=== PATIENT | female | born 1945 | race Caucasian/White ===

== ENCOUNTER → 2017-06-11 | Outpatient (CLI) | payer MEDICARE, BC ==
--- NOTE | 2017-06-11 15:35 | XR ---
EXAMINATION TYPE: XR chest 2V DATE OF EXAM: 06/11/2017 COMPARISON: NONE HISTORY: Shortness of breath TECHNIQUE: Frontal and lateral views of the chest are obtained. FINDINGS: Scattered senescent parenchymal changes noted. Calcified granuloma seen diffusely throughout both bruno gs. Focal eventration left hemidiaphragm. No evidence for infiltrate. No evidence for atelectasis. Heart size is stable. Mediastinal structures are stable and grossly unremarkable. No evidence for hilar prominence. Degenerative changes dorsal spine. IMPRESSION: 1. No evidence for acute pulmonary disease.
== END | disposition home or self-care (01) ==
LOC: RADXRMAIN 14:50
PROVIDERS: ATTEND Anesthesiology
DX: Z01.818 Encounter for other preprocedural examination (principal); Z88.1 Allergy status to other antibiotic agents
CPT/HCPCS: 71046; 93005

== ENCOUNTER → 2018-11-28 | Day surgery (SDC) | payer MEDICARE, BC ==
[2018-11-24 17:30] VITALS: BMI 26.6
[~2018-11-28] MED LIST: LIDOCAINE 1% 20 ML VIAL (10MG/ML) FOR IV START INTRADERMA ONE; LIDOCAINE 1% 20 ML VIAL (10MG/ML) FOR IV START INTRADERMA PRN; LIDOCAINE 1% INJ 10MG/ML (20 ML MDV) ONE; MIDAZOLAM (PF) 2 MG/2 ML VIAL IV ONE; PROPOFOL 10 MG/ML 20 ML VIAL IV ONE
[2018-11-28 10:16] VITALS: RESP 16; TEMP 97.7
[2018-11-28] MEDS: LACTATED RINGERS 1,000 ML IV SCH ×2 (10:21→10:33)
--- NOTE | 2018-11-28 11:26 | P.GSHP ---
History of Present Illness H&P Date: 11/28/18 Chief Complaint: Epigastric pain This is a 73-year-old female with complaints of epigastric pain. Patient is today for EGD. Past Medical History Past Medical History: Fibromyalgia, Hyperlipidemia, Osteoarthritis (OA), Pneumonia Additional Past Medical History / Comment(s): RESTLESS LEG, STATES HAS HAD "SPOTS(scar tissue) ON LUNGS SINCE AGE 16", "bad headaches", nausea and abdominal pain, "diverticuli in throat" History of Any Multi-Drug Resistant Organisms: None Reported Past Surgical History: Joint Replacement, Orthopedic Surgery, Tonsillectomy Additional Past Surgical History / Comment(s): RT KNEE REPLACEMENT x 2, CHEPE CATARACT SX A CHILD, REDONE WITH IMPLANTED LENSES, rt ankle surgery Past Anesthesia/Blood Transfusion Reactions: Motion Sickness Smoking Status: Never smoker - Past Family History Mother Family Medical History: No Reported History Medications and Allergies Home Medications Medication Instructions Recorded Confirmed Type Cetirizine HCl [Zyrtec] 10 mg PO DIRECTED PRN 05/03/15 11/28/18 History Simvastatin [Zocor] 40 mg PO HS 05/03/15 11/28/18 History rOPINIRole HCL [Requip] 0.5 mg PO TID PRN 05/03/15 11/28/18 History Ascorbic Acid [Vitamin C] 500 mg PO DAILY 11/24/18 11/24/18 History FLUoxetine HCL [PROzac] 20 mg PO HS 11/24/18 11/28/18 History HYDROcodone/APAP 10-325MG [[place] 1 tab PO QID 11/24/18 11/28/18 History 10-325] Multivitamins, Thera [Multivitamin 1 tab PO DAILY 11/24/18 11/24/18 History (formulary)] Omeprazole [PriLOSEC] 20 mg PO AC-BRKFST 11/24/18 11/24/18 History Vitamin C/Biotin [Hair, Skin and 2 tab PO DAILY 11/24/18 11/28/18 History Nails] Allergies Allergy/AdvReac Type Severity Reaction Status Date / Time ciprofloxacin [From Cipro] Allergy stumbling Verified 11/24/18 17:18 into [facility] erythromycin base Allergy stumbling Verified 11/24/18 17:18 [From E-Mycin] into [facility] Surgical - Exam Vital Signs Temp Pulse Resp BP Pulse Ox 97.7 F 91 16 149/77 95 11/28/18 10:09 11/28/18 10:09 11/28/18 10:09 11/28/18 10:09 11/28/18 10:09 - General well developed, well nourished, no distress - Eyes PERRL - ENT normal pinna - Neck no masses - Respiratory normal expansion - Cardiovascular Rhythm: regular - Abdomen Abdomen: soft, non tender Assessment and Plan Assessment: Epigastric pain. We'll perform EGD tonight for gastritis.
--- NOTE | 2018-11-28 11:35 | P.OP ---
Date of Procedure: 11/28/18 Preoperative Diagnosis: Epigastric pain Postoperative Diagnosis: Antral gastritis Procedure(s) Performed: EGD Anesthesia: MAC Surgeon: Morris Holland Pathology: other (Antrum) Condition: stable Disposition: PACU Description of Procedure: The patient's placed on the endoscopy table in the lateral position. She received IV sedation. The gastroscope placed oropharynx and passed in the esophagus and into the stomach. The scope was then placed through the pylorus. The first and second portion of the duodenum appeared normal. The scope was then brought back the antrum this was mildly inflamed. A biopsies performed. The scope was unretroflexed and remainder of the stomach appeared normal. There is no significant hiatal hernia. The GE junction was at 47 is. The distal esophagus appeared normal. The proximal esophagus appeared normal. Scope withdrawn for patient.
[2018-11-28 12:45] VITALS: BP 138/76; PULSE 66
--- NOTE | 2018-11-29 12:05 | NM ---
EXAMINATION TYPE: NM hepatobiliary w CCK DATE OF EXAM: 11/28/2018 COMPARISON: NONE INDICATION: Epigastric pain TECHNIQUE: After the intravenous administration of 5.13 mCi Tc 99m Mebrofenin hepatobiliary scintigra phy is performed. Images were obtained immediately post injection. FINDINGS: There is prompt uptake and excretion of radiotracer by the liver. Extrahepatic ducts are identified at 9 minutes. The gallbladder is visualized within 9 minutes. Small bowel activity is noted within 30 minutes. At one hour CCK was administered, patient was injected with 1.4 mcg of Kinevac, and gallbladder eject ion fraction is calculated at 92 %, which is elevated. (Normal >35% and <80%.). IMPRESSION: 1. Clinical correlation recommended for biliary hyperkinesia.
== END | disposition home or self-care (01) ==
LOC: ORWHC2ENDO 09:59
PROVIDERS: ATTEND Surgery
DX: K29.50 Unspecified chronic gastritis without bleeding (principal); E78.5 Hyperlipidemia, unspecified; G25.81 Restless legs syndrome; M19.90 Unspecified osteoarthritis, unspecified site; M79.7 Fibromyalgia; Z88.1 Allergy status to other antibiotic agents; Z96.651 Presence of right artificial knee joint; Z98.42 Cataract extraction status, left eye; Z98.41 Cataract extraction status, right eye; Z96.1 Presence of intraocular lens; Z79.899 Other long term (current) drug therapy; Z79.891 Long term (current) use of opiate analgesic
CPT/HCPCS: 88305; 78227; 43239; A9537; J2805; J2001; J2704; J2250

== ENCOUNTER 2018-12-13 08:48 | Day surgery (SDC) | payer MEDICARE, BC ==
[2018-12-09 13:00] VITALS: BMI 26.4
[~2018-12-13 08:48] MED LIST changes: +DEXAMETHASONE SOD PHOSPHATE 10 MG/ML 1 ML VIAL IV ONE; +HEPARIN SODIUM,PORCINE 5,000 UNIT/ML 1 ML VIAL SQ ONE; -LIDOCAINE 1% 20 ML VIAL (10MG/ML) FOR IV START INTRADERMA ONE; -LIDOCAINE 1% 20 ML VIAL (10MG/ML) FOR IV START INTRADERMA PRN; -LIDOCAINE 1% INJ 10MG/ML (20 ML MDV) ONE; -MIDAZOLAM (PF) 2 MG/2 ML VIAL IV ONE; +MIDAZOLAM 2 MG/2 ML VIAL IV PRN; +ONDANSETRON 4 MG/2 ML VIAL IVP ONE; -PROPOFOL 10 MG/ML 20 ML VIAL IV ONE
[2018-12-13 09:30] VITALS: TEMP 96.7
[2018-12-13] MEDS: LACTATED RINGERS 1,000 ML IV SCH ×2 (09:45→10:57)
[2018-12-13] MEDS ORDERED: LIDOCAINE 1% 20 ML VIAL (10MG/ML) FOR IV START INTRADERMA ONE (09:45)
[2018-12-13] MEDS ORDERED: SCOPOLAMINE 1.5MG/72HR PATCH TRANSDERM ONE (09:48)
--- NOTE | 2018-12-13 10:33 | P.GSHP ---
History of Present Illness H&P Date: 12/13/18 Chief Complaint: Upper quadrant pain This a 73-year-old female who presents today for laparoscopically second. Patient had complaints of right quadrant pain. Her recent HIDA scan showed abnormal ejection fraction. Past Medical History Past Medical History: Cancer, COPD, Fibromyalgia, Hyperlipidemia, Osteoarthritis (OA), Pneumonia Additional Past Medical History / Comment(s): RESTLESS LEG, STATES HAS HAD "SPOTS(scar tissue) ON LUNGS SINCE AGE 16", "bad headaches", nausea and abdominal pain, polyp in throat", skin cancer History of Any Multi-Drug Resistant Organisms: None Reported Past Surgical History: Joint Replacement, Orthopedic Surgery, Tonsillectomy Additional Past Surgical History / Comment(s): RT KNEE REPLACEMENT x 2, CHEPE CATARACT SX A CHILD, REDONE WITH IMPLANTED LENSES, rt ankle surgery, egd Past Anesthesia/Blood Transfusion Reactions: Motion Sickness Smoking Status: Never smoker - Past Family History Mother Family Medical History: No Reported History Medications and Allergies Home Medications Medication Instructions Recorded Confirmed Type Cetirizine HCl [Zyrtec] 10 mg PO HS PRN 05/03/15 12/13/18 History Simvastatin [Zocor] 40 mg PO HS 05/03/15 12/13/18 History rOPINIRole HCL [Requip] 0.5 mg PO TID PRN 05/03/15 12/13/18 History Ascorbic Acid [Vitamin C] 500 mg PO DAILY 11/24/18 12/13/18 History FLUoxetine HCL [PROzac] 20 mg PO HS 11/24/18 12/13/18 History HYDROcodone/APAP 10-325MG [[place] 1 tab PO QID PRN 11/24/18 12/13/18 History 10-325] Multivitamins, Thera [Multivitamin 1 tab PO DAILY 11/24/18 12/13/18 History (formulary)] Omeprazole [PriLOSEC] 20 mg PO AC-BRKFST 11/24/18 12/13/18 History Vitamin C/Biotin [Hair, Skin and 2 tab PO DAILY 11/24/18 12/13/18 History Nails] Allergies Allergy/AdvReac Type Severity Reaction Status Date / Time ciprofloxacin [From Cipro] Allergy Abdominal Verified 12/13/18 09:31 Pain, DIZZY erythromycin base Allergy stumbling Verified 12/13/18 09:31 [From E-Mycin] into [facility] DIZZY VOMITING Surgical - Exam Vital Signs Temp Pulse Resp BP Pulse Ox 96.7 F L 83 20 116/76 94 L 12/13/18 09:27 12/13/18 09:27 12/13/18 09:27 12/13/18 09:27 12/13/18 09:27 - General well developed, well nourished, no distress - Eyes PERRL - ENT normal pinna - Neck no masses - Respiratory normal expansion - Cardiovascular Rhythm: regular - Abdomen Abdomen: soft, non tender Assessment and Plan Assessment: Right upper quadrant pain Abnormal HIDA scan. We'll perform colonoscopy
[2018-12-13] MEDS ORDERED: MIDAZOLAM 2 MG/2 ML VIAL IVP ONE (10:35)
[2018-12-13] MEDS: MIDAZOLAM 2 MG/2 ML VIAL IVP ONE ×2 (10:35→10:41)
--- NOTE | 2018-12-13 10:48 | P.OP ---
Date of Procedure: 12/13/18 Preoperative Diagnosis: Constipation Postoperative Diagnosis: Normal colon Poor colonic prep Procedure(s) Performed: Colonoscopy Anesthesia: MAC Surgeon: Morris Holland Pathology: none sent Condition: stable Disposition: PACU Description of Procedure: The patient's placed on the endoscopy table in the lateral position. He received IV sedation. Digital rectal performed which revealed no abnormalities. Flexible colonoscope was then placed patient anus passed throughout the entire colon. The ileocecal valve was visualized. There was a large amount of liquid stool in the colon which limited the view of the mucosa. The scope was withdrawn. The ascending colon, transverse colon and descending colon appeared normal. The sigmoid colon was tortuous. Scope was then brought back the rectum and this appeared normal. Scope withdrawn for patient.
[2018-12-13] MEDS ORDERED: PROPOFOL 10 MG/ML 20 ML VIAL IV ONE (10:54)
[2018-12-13] MEDS ORDERED: ROCURONIUM BROMIDE 10 MG/ML 10 ML VIAL IV ONE (10:54)
[2018-12-13] MEDS ORDERED: fentaNYL (PF) 50 MCG/ML 2 ML AMP ONE (10:54)
[2018-12-13] MEDS ORDERED: NEOSTIGMINE 1 MG/ML 10 ML VIAL ONE (10:54)
[2018-12-13] MEDS ORDERED: LIDOCAINE 1% INJ 10MG/ML (20 ML MDV) ONE (10:54)
[2018-12-13] MEDS ORDERED: GLYCOPYRROLATE 0.2 MG/ML 2 ML VIAL ONE (10:54)
[2018-12-13] MEDS ORDERED: BUPIVACAINE (PF) 0.25% 30 ML VIAL SQ ONE (11:12)
[2018-12-13] MEDS: HYDROmorphone 0.5 MG/0.5 ML SYRINGE IVP PRN ×4 (11:50→12:05)
--- NOTE | 2018-12-13 11:52 | P.OP ---
Date of Procedure: 12/13/18 Preoperative Diagnosis: Cholecystitis Postoperative Diagnosis: Cholecystitis Procedure(s) Performed: Laparoscopic cholecystectomy Anesthesia: MAC Surgeon: Morris Holland Estimated Blood Loss (ml): 5 Pathology: other (Gallbladder) Condition: stable Disposition: PACU Description of Procedure: The patient was placed on the operating table. The patient received a general endotracheal tube anesthesia. The patients abdomen was prepped and draped in the usual sterile fashion. Through an infraumbilical stab incision, the fascia of the anterior abdominal wall was grasped with a pair of Kochers and then the Veress needle was placed in the peritoneal cavity. Position of the Veress needle was confirmed with positive drop test. The abdomen was then insufflated. After adequate insufflation, the 10 mm trocar was placed in the peritoneal cavity. Following this the laparoscope was placed in the peritoneal cavity. The patient was placed in the head-up, right side up position and then a 5 mm trocar was placed in the right lateral and right subcostal position under direct visualization. A 8 mm trocar was placed in the epigastric position. The gallbladder was grasped in the fundus and infundibulum. Traction on the gallbladder was placed in the lateral and the cephalad positions. The triangle of Calot was visualized.. The cystic duct was bluntly dissected until the union of the cystic duct and common bile duct was seen. A critical view of safety was achieved. The cystic duct was then divided and sealed with the Harmonic scissors. A PDS Endoloop was then placed throughout the cystic duct stump. The cystic artery divided and sealed with the Harmonic scissors. The gallbladder was then removed from the liver bed using Harmonic scissors. The gallbladder was then extracted through the epigastric port site. Operative field was checked for any bleeding spots and Harmonic scissors was used to coagulate the liver bed. The abdomen was irrigated. The trocars were removed. The skin was closed using interrupted 3-0 Vicryl suture. Dermabond dressing were applied. The patient tolerated the procedure well.
[2018-12-13] MEDS ORDERED: ONDANSETRON 4 MG/2 ML VIAL IVP ONE (11:55)
[2018-12-13] MEDS ORDERED: LACTATED RINGERS 1,000 ML IV ONE (12:00)
[2018-12-13] MEDS ORDERED: diphenhydrAMINE 50 MG/ML 1 ML VIAL IVP ONE (12:19)
[2018-12-13] MEDS ORDERED: HYDROcodone/APAP 10-325MG 1 EACH TAB PO ONE (12:27)
[2018-12-13 14:33] VITALS: BP 142/76; PULSE 99; RESP 18
== END 2018-12-13 14:30 | disposition home or self-care (01) ==
LOC: OR 08:48
PROVIDERS: ATTEND Surgery
DX: K81.1 Chronic cholecystitis (principal); J44.9 Chronic obstructive pulmonary disease, unspecified; E78.5 Hyperlipidemia, unspecified; M79.7 Fibromyalgia; M19.90 Unspecified osteoarthritis, unspecified site; G25.81 Restless legs syndrome; K21.9 Gastro-esophageal reflux disease without esophagitis; Z88.1 Allergy status to other antibiotic agents; Z85.828 Personal history of other malignant neoplasm of skin; Z87.01 Personal history of pneumonia (recurrent); Z79.899 Other long term (current) drug therapy; Z96.651 Presence of right artificial knee joint; Z90.89 Acquired absence of other organs; Z98.41 Cataract extraction status, right eye; Z98.42 Cataract extraction status, left eye; Z96.1 Presence of intraocular lens; Z98.890 Other specified postprocedural states
CPT/HCPCS: 88304; 47562; J2250; J1200; J1644; J1100; J2710; J0690; J2405; J2001; J3010; J2704; J1170

== ENCOUNTER → 2020-01-18 | Outpatient (CLI) | payer MEDICARE, BC ==
--- NOTE | 2020-01-18 22:01 | CT ---
EXAMINATION TYPE: CT abdomen wo/w con DATE OF EXAM: 01/18/2020 COMPARISON: None INDICATION: RUQ pain DLP: 1150 mGycm, Automated exposure control for dose reduction was used. CONTRAST: 100 mL of Isovue 300. Study performed with Oral Contrast TECHNIQUE: Axial images were obtained from above the diaphragm to the pubic rami in the axial plane a t 5 mm thick sections. Reconstructed images are reviewed on the computer in the coronal plane. FINDINGS: Limited CT sections are obtained the lung bases. Scattered calcifications are within the lung bases likely on the basis of granuloma.. There appears to be herniation of the posterior left lung base. S tomach spleen adrenal glands and kidney appear to extend upwards from this location. CT ABDOMEN: Liver: Normal Spleen: Couple of calcified granuloma are within the visualized portion of the spleen. Pancreas: Normal Adrenal glands: The adrenal glands are normal. Gallbladder: Not identified. Kidneys: No masses are evident. No hydronephrosis is present. No cysts are present. Study is witho ut intravenous contrast. No renal stones are identified. Postcontrast imaging is performed. Kidneys r emain unremarkable Aorta: Vascular calcification is within the aorta. Inferior vena cava: Normal. Loops of bowel within the abdomen and upper pelvis are normal. There are loops of bowel which are incompletely distended or lack oral contrast limiting their evaluation. IMPRESSIONS: 1. Calcified granuloma within the lung bases. 2. 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 3. No suspicious acute changes within the abdomen
== END | disposition home or self-care (01) ==
LOC: RADCTMAIN 12:51
PROVIDERS: ATTEND Family Medicine
DX: R10.11 Right upper quadrant pain (principal)
CPT/HCPCS: 82565; 84520; 74170; 36415; Q9967

== ENCOUNTER → 2023-01-18 | Outpatient (CLI) | payer MEDICARE ==
[2023-01-18 14:25] VITALS: BP 135/94; PULSE 111; RESP 16; TEMP 98.4
--- NOTE | 2023-01-18 14:55 | P.PAINPG ---
PQRS Measure Charge Sheet Comment: HISTORY OF PRESENT ILLNESS: A 77 yr old female as a referral from Dr Baron presents today w severe and chronic LBP x 2 yrs secondary to DDD, spondylosis and facet arthropathy without myelopathy for evaluation. Pt states pain level is provoked at 10/10 in intensity, constant, localized in the mid to lower lumbar spine, predominantly axial, achy in character w occasional shooting pain towards the BL hips and LEs. Pain is provoked by weight bearing activity. Pain is alleviated by medications (Bath 10/325mg #120, Flexeril, Ibu), PT in 2020, chiropractic treatments in 2020, physician guided stretches daily x 3 yrs, use of a wheelchair for ambulatory assistance, heat, ice, topicals, repositioning and rest. LESIs have been ineffective in the past. Pt states Dr Cagel told her she is not a surgical candidate. Oswestry axial pain score at 27. PMH: OA, Skin CA, COPD, Fibromyalgia, Hyperlipidemia, RLS PSH: Laparoscopic Cholecystectomy (2019), EGD (2019), R Knee Replacement x2, Tonsillectomy, BL Cataract Extraction w Lens Implants, R Ankle Surgery SH: Negative x3 FH: Mo - No Reported History All: See list Meds: See list REVIEW OF ORGAN SYSTEMS: CONSTITUTIONAL: No fevers or chills. No recent weight loss. NEUROLOGICAL: + numbness and tingling along the distal extremities. No seizure disorders or headaches. MUSCULOSKELETAL: + pain PSYCHIATRIC: Denies current depression or suicidal thoughts. Physical Examinations : Constitutional : Cooperative , not in acute distress . Neurologic : Cranial nerve II to XII intact. No focal neurological deficits. Psychiatric : alert & oriented x 3. Matching mood & appropriate affect. Judgment & insight intact. Musculoskeletal : Cervical Spine Motor strength in the deltoid and biceps: Normal right side. Normal Left side Motor strength biceps and the wrist extensors: Normal right side . Normal left side Motor strength in the triceps muscle: Normal right side. Normal left side Deep tendon reflexes: Normal at the biceps. Normal at Brachioradialis. Normal at triceps Vertebral body tenderness to deep palpation over Cervical facet loading test: positive bilaterally Spurling test: positive bilaterally Neck distraction test: positive bilaterally Lacho sign: positive bilaterally Lumbar spine Motor strength lower extremities ,thigh and legs 5/5 Right side , 5/5 Left side Deep tendon reflexes : Normal Knee Jerk. Normal Ankle Jerk Vertebral body tenderness over Thornton Test positive Taut bands w twitch response over BL L1-S1 Lumbar facet Loading Test: positive Right / positive Left Range of motion of the lumbar spine Flexion 30 degrees, extension 10 degrees Straight Leg Raise test: Left/ Right positive at degree Neftali test: positive right / positive left. Severe tenderness over the Sacroiliac joint on the Right / Left sides Gaenslen test: positive bilaterally Seated flexion test: positive bilaterally. Sacral spine : Severe tenderness over the Sacroiliac joint: right side / left side Range of motion: Flexion of the lumbar spine <60 degrees Range of motion: Extension of the lumbar spine <20 degrees Gaenslen's Test positive Neftali test: positive right side / left side Thigh Thrust Test Sacral Thrust Test Imaging: None on file Assessment/ Plan : Lumbar DDD Recommendation of BL TPIs L1-S1. May need a series of injections for optimal pain relief. Risks, benefits of procedure discussed and patient verbalized understanding. Admits to anti- coagulant use or medical history of diabetes. Protocol for discontinuation/ continuation of medications yuan procedure discussed. Minimal anesthesia provided, if clinically indicated, consisting of Versed and Fentanyl. Medication management. Bath 10/325mg #120 w 1 RF. Use, side effects, adverse reactions and safe storage discussed. Opiate/ narcotic agreement signed 01/18/23. MAPS reviewed. Last fill was Sep [address] Baron's longterm. All questions answered. I have spent greater than 30 minutes on patient care today. Dr Corea was available by phone for the evaluation of this patient. The time was used to review the medical records including relevant urine studies and Prescription history (MAPs), review of the available imaging, evaluation and examination of the patient, coordination of care with the medical staff and if applicable referring physicians, as well as creation of the medical record PQRS Narrative: Smoking Status Never smoker Home Medications: Ambulatory Orders Cetirizine HCl [Zyrtec] 10 mg PO HS PRN 05/03/15 Simvastatin [Zocor] 40 mg PO HS 05/03/15 rOPINIRole HCL [Requip] 0.5 mg PO TID PRN 05/03/15 Ascorbic Acid [Vitamin C] 500 mg PO DAILY 11/24/18 FLUoxetine HCL [PROzac] 20 mg PO HS 11/24/18 HYDROcodone/APAP 10-325MG [[place] 10-325] 1 tab PO QID PRN 11/24/18 Multivitamins, Thera [Multivitamin (formulary)] 1 tab PO DAILY 11/24/18 Omeprazole [PriLOSEC] 20 mg PO AC-BRKFST 11/24/18 Vitamin C/Biotin [Hair, Skin and Nails] 2 tab PO DAILY 11/24/18 Controlled Substance Measures - Controlled Substance Measures Is patient prescribed a controlled substance at discharge?: Yes When asked, does pt state using other controlled substances?: No If prescribed controlled substance>3 days was MAPS reviewed?: Yes If Rx opioid, was Start Talking consent form obtained?: Yes Was information provided regarding opioid addiction?: Yes
== END ==
LOC: PNWHC3 13:20
PROVIDERS: ATTEND Specialist
DX: M15.0 Primary generalized (osteo)arthritis (principal); E78.5 Hyperlipidemia, unspecified; M70.62 Trochanteric bursitis, left hip; M51.36 Other intervertebral disc degeneration, lumbar region; J44.9 Chronic obstructive pulmonary disease, unspecified; Z88.1 Allergy status to other antibiotic agents
CPT/HCPCS: 99211

== ENCOUNTER → 2023-02-02 | Outpatient (CLI) | payer MEDICARE ==
[2023-02-02 13:27] VITALS: BP 115/75; PULSE 100; RESP 18; TEMP 98.6
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
== END ==
LOC: WWCWWP 12:50
PROVIDERS: ATTEND Obstetrics & Gynecology
DX: N90.7 Vulvar cyst (principal); J44.9 Chronic obstructive pulmonary disease, unspecified; G25.81 Restless legs syndrome; E78.5 Hyperlipidemia, unspecified; M19.90 Unspecified osteoarthritis, unspecified site; M79.7 Fibromyalgia; M51.9 Unspecified thoracic, thoracolumbar and lumbosacral intervertebral disc disorder; Z78.0 Asymptomatic menopausal state; Z85.828 Personal history of other malignant neoplasm of skin; Z88.1 Allergy status to other antibiotic agents

== ENCOUNTER → 2023-05-20 | Outpatient (CLI) | payer MEDICARE ==
[2023-05-20 14:32] VITALS: BP 135/84; PULSE 84; RESP 15; TEMP 98.4
--- NOTE | 2023-05-20 14:50 | P.PAINPG ---
PQRS Measure Charge Sheet Comment: HISTORY OF PRESENT ILLNESS: A 77 yr old wheelchair bound female presents today w severe and chronic LBP x 2 yrs secondary to DDD, spondylosis and facet arthropathy without myelopathy for evaluation. Pt was hospitalized at [facility] for GI Bleed and had abdominal surgery approximately 2 mo ago. Pt states pain level is provoked at 9 /10 in intensity, constant, localized in the mid to lower lumbar spine, predominantly axial, achy in character w occasional shooting pain towards the BL hips and LEs. Pain is provoked by weight bearing activity. Pain is alleviated by medications, PT in 2019, chiropractic treatments in 2020, physician guided stretches daily x 3 yrs, use of a wheelchair for ambulatory assistance, heat, ice, topicals, repositioning and rest. LESIs have been ineffective in the past. Pt states Dr Cagle told her she is not a surgical candidate. Oswestry axial pain score at 27. Interventional procedures include Medications include [place] 10/325mg #120, Flexeril, Ibu REVIEW OF ORGAN SYSTEMS: CONSTITUTIONAL: No fevers or chills. No recent weight loss. NEUROLOGICAL: + numbness and tingling along the distal extremities. No seizure disorders or headaches. MUSCULOSKELETAL: + pain PSYCHIATRIC: Denies current depression or suicidal thoughts. Physical Examinations : Constitutional : Cooperative , not in acute distress . Neurologic : Cranial nerve II to XII intact. No focal neurological deficits. Psychiatric : alert & oriented x 3. Matching mood & appropriate affect. Judgment & insight intact. Musculoskeletal : Cervical Spine Motor strength in the deltoid and biceps: Normal right side. Normal Left side Motor strength biceps and the wrist extensors: Normal right side . Normal left side Motor strength in the triceps muscle: Normal right side. Normal left side Deep tendon reflexes: Normal at the biceps. Normal at Brachioradialis. Normal at triceps Vertebral body tenderness to deep palpation over Cervical facet loading test: positive bilaterally Spurling test: positive bilaterally Neck distraction test: positive bilaterally Lacho sign: positive bilaterally Lumbar spine Motor strength lower extremities ,thigh and legs 5/5 Right side , 5/5 Left side Deep tendon reflexes : Normal Knee Jerk. Normal Ankle Jerk Vertebral body tenderness over Thornton Test positive Taut bands w twitch response over BL L1-S1 Lumbar facet Loading Test: positive Right / positive Left Range of motion of the lumbar spine Flexion 30 degrees, extension 10 degrees Straight Leg Raise test: Left/ Right positive at degree Neftali test: positive right / positive left. Severe tenderness over the Sacroiliac joint on the Right / Left sides Gaenslen test: positive bilaterally Seated flexion test: positive bilaterally. Sacral spine : Severe tenderness over the Sacroiliac joint: right side / left side Range of motion: Flexion of the lumbar spine <60 degrees Range of motion: Extension of the lumbar spine <20 degrees Gaenslen's Test positive Neftali test: positive right side / left side Thigh Thrust Test Sacral Thrust Test Imaging: None on file Assessment/ Plan : Lumbar DDD Recommendation of lumbar x ray M51.36. May need additional imaging if indicated. Medication management. [place] 10/325mg #120 w 1 RF. Use, side effects, adverse reactions and safe storage discussed. Opiate/ narcotic agreement signed 01/18/23. MAPS reviewed. All questions answered. I have spent greater than 30 minutes on patient care today. Dr Corea was available by phone for the evaluation of this patient. The time was used to review the medical records including relevant urine studies and Prescription history (MAPs), review of the available imaging, evaluation and examination of t he patient, coordination of care with the medical staff and if applicable referring physicians, as well as creation of the medical record PQRS Narrative: Smoking Status Never smoker Hx Alcohol Use (MH) No Home Medications: Ambulatory Orders Simvastatin [Zocor] 40 mg PO HS 05/03/15 rOPINIRole HCL [Requip] 0.5 mg PO TID PRN 05/03/15 Ascorbic Acid [Vitamin C] 500 mg PO DAILY 11/24/18 FLUoxetine HCL [PROzac] 20 mg PO HS 11/24/18 Multivitamins, Thera [Multivitamin (formulary)] 1 tab PO DAILY 11/24/18 HYDROcodone/APAP 10-325MG [[place] 10-325] 1 tab PO Q6H PRN 30 Days #120 tab 05/13/23 Controlled Substance Measures - Controlled Substance Measures Is patient prescribed a controlled substance at discharge?: Yes When asked, does pt state using other controlled substances?: No If prescribed controlled substance>3 days was MAPS reviewed?: Yes
--- NOTE | 2023-05-20 18:04 | XR ---
EXAMINATION TYPE: XR lumbar spine 2 or 3V DATE OF EXAM: 05/20/2023 3:01 PM CLINICAL INDICATION:Female, 77 years old with history of M54.16 M51.36 OTHER DDD; PHH COMPARISON: None TECHNIQUE: XR lumbar spine 2 or 3V - Frontal, lateral and coned in L5-S1 lateral views of the spine. FINDINGS: No evidence of any acute osseous pathology. No evidence of loss of vertebral body height i s seen. There is scoliotic alignment of the lumbar vertebral bodies apex L4 on the left. Grade 1 ante rolisthesis of L4 and L5. Moderate scattered disc space narrowing. Multilevel marginal osteophyte for mation throughout the visualized spine. There is facet joint arthropathy throughout the spine. Scatte red at least mild neural foraminal stenosis. Atherosclerosis of the arterial vasculature. IMPRESSION: 1. No acute fracture. 2. Moderate to severe multilevel disc degeneration.
== END ==
LOC: PNWHC3 13:30
PROVIDERS: ATTEND Specialist
DX: M51.37 Other intervertebral disc degeneration, lumbosacral region (principal); M47.817 Spondylosis without myelopathy or radiculopathy, lumbosacral region; Z88.1 Allergy status to other antibiotic agents
CPT/HCPCS: 72100; G0463; 99211

== ENCOUNTER → 2023-07-23 | Outpatient (CLI) | payer MEDICARE ==
--- NOTE | 2023-07-27 05:18 | MR ---
EXAMINATION TYPE: MR lumbar spine wo con DATE OF EXAM: 07/23/2023 COMPARISON: Lumbar spine x-ray May 20, 2023 HISTORY: Low back pain, difficulty walking. TECHNIQUE: Multiplanar, multisequence imaging of the lumbar spine is performed without IV contrast. FINDINGS: Sagittal images of the lumbar spine show vertebral body heights to appear satisfactory. The re is levoconvex scoliosis centered at L4 level redemonstrated. Multilevel spondylolisthesis on sagit mark images. Multilevel disc desiccation. There is [id number] multilevel disc space narrowing an d spurring with relative sparing of the L5-S1 level. Conus medullaris is normal in signal and positio n ending at mid L1 level. Scattered small hemangiomas are present. Axial images at T12-L1 level shows spondylolisthesis and mild/moderate broad disc bulge mildly efface s the anterior thecal sac. Patent bilateral neural foramina. Axial images at L1-L2 level show spondylolisthesis with mild broad disc bulge mildly effacing the ant erior thecal sac along with mild facet arthropathy and ligamentum flavum hypertrophy effacing the rig ht posterolateral thecal sac. There is mild right-sided neural foraminal narrowing. Axial images at L2-L3 level show spondylolisthesis with mild/moderate broad-based disc bulge and left lateral disc protrusion component effaces anterior thecal sac. There is mild facet arthropathy and l igamentum flavum hypertrophy effacing the left posterior lateral thecal sac. There is mild left-sided neural foraminal narrowing. Axial images at L3-L4 levels with spondylolisthesis with mild/moderate facet arthropathy and ligament um flavum hypertrophy effacing the bilateral posterior lateral thecal sac and mild broad disc bulge e ffacing the anterior thecal sac. There is [id number] right greater than left bilateral neural f oraminal narrowing. Axial images at L4-L5 level show mild/moderate broad-based disc bulge mildly effacing the anterior th ecal sac along with moderate facet arthropathy and ligamentum flavum hypertrophy effacing the bilater al lateral thecal sac. There is moderate right and mild left-sided neural foraminal narrowing. Axial images at L5-S1 level shows mild facet arthropathy bilaterally. Tiny central disc protrusion is seen. Spinal canal fairly well preserved. Bilateral neural foramina are patent. Some cortical thinning in both kidneys is seen. IMPRESSION: Scoliosis with Multilevel spondylolisthesis and degenerative change in the lumbar spine a s detailed above.
== END | disposition home or self-care (01) ==
LOC: RADMRIMAIN 15:14
PROVIDERS: ATTEND Specialist
DX: M47.26 Other spondylosis with radiculopathy, lumbar region (principal); M43.16 Spondylolisthesis, lumbar region; M51.16 Intervertebral disc disorders with radiculopathy, lumbar region; M41.86 Other forms of scoliosis, lumbar region; R26.2 Difficulty in walking, not elsewhere classified
CPT/HCPCS: 72148

== ENCOUNTER → 2023-08-25 | Outpatient (CLI) | payer MEDICARE ==
[2023-08-25 14:47] VITALS: BP 122/83; PULSE 99; RESP 16
--- NOTE | 2023-08-25 14:55 | P.PAINPG ---
PQRS Measure Charge Sheet Comment: HISTORY OF PRESENT ILLNESS: A 78 yr old wheelchair bound female presents today w severe and chronic LBP x 2 yrs secondary to DDD, spondylosis and facet arthropathy without myelopathy for MRI results. Pt states pain level is provoked at 9 /10 in intensity, constant, localized in the mid to lower lumbar spine, predominantly axial, achy in character w occasional shooting pain towards the BL hips and LEs. Pain is provoked by weight bearing activity. Pain is alleviated by medications, PT in 2019, chiropractic treatments in 2020, physician guided stretches daily x 3 yrs, use of a wheelchair for ambulatory assistance, heat, ice, topicals, repositioning and rest. LESIs have been ineffective in the past. Oswestry axial pain score at 27. Interventional procedures include LESIs ineffective, not a surgical candidate per Dr Cagle Medications include [place] 10/325mg #120, Flexeril, Ibu REVIEW OF ORGAN SYSTEMS: CONSTITUTIONAL: No fevers or chills. No recent weight loss. NEUROLOGICAL: + numbness and tingling along the distal extremities. No seizure disorders or headaches. MUSCULOSKELETAL: + pain PSYCHIATRIC: Denies current depression or suicidal thoughts. Physical Examinations : Constitutional : Cooperative , not in acute distress . Neurologic : Cranial nerve II to XII intact. No focal neurological deficits. Psychiatric : alert & oriented x 3. Matching mood & appropriate affect. Judgment & insight intact. Musculoskeletal : Cervical Spine Motor strength in the deltoid and biceps: Normal right side. Normal Left side Motor strength biceps and the wrist extensors: Normal right side . Normal left side Motor strength in the triceps muscle: Normal right side. Normal left side Deep tendon reflexes: Normal at the biceps. Normal at Brachioradialis. Normal at triceps Vertebral body tenderness to deep palpation over Cervical facet loading test: positive bilaterally Spurling test: positive bilaterally Neck distraction test: positive bilaterally Lacho sign: positive bilaterally Lumbar spine Motor strength lower extremities ,thigh and legs 5/5 Right side , 5/5 Left side Deep tendon reflexes : Normal Knee Jerk. Normal Ankle Jerk Vertebral body tenderness over L3 Thornton Test positive BL L2-L3 Taut bands w twitch response over Lumbar facet Loading Test: positive Right / positive Left Range of motion of the lumbar spine Flexion 30 degrees, extension 10 degrees Straight Leg Raise test: Left/ Right positive at degree Neftali test: positive right / positive left. Severe tenderness over the Sacroiliac joint on the Right / Left sides Gaenslen test: positive bilaterally Seated flexion test: positive bilaterally. Sacral spine : Severe tenderness over the Sacroiliac joint: right side / left side Range of motion: Flexion of the lumbar spine <60 degrees Range of motion: Extension of the lumbar spine <20 degrees Gaenslen's Test positive Neftali test: positive right side / left side Thigh Thrust Test Sacral Thrust Test Imaging: MRI non contrast of the lumbar spine from 07/23/23 reviewed Assessment/ Plan : Lumbar DDD Recommendation of medication management. [place] 10/325mg #120 w 1 RF. Use, side effects, adverse reactions and safe storage discussed. Opiate/ narcotic agreement signed 01/18/23. UDS collected M/APS reviewed. All questions answered. I have spent greater than 30 minutes on patie/nt care today. Dr Corea was available by phone for the evaluation of this patient. The time was used to review the medical records including relevant urine s udies and Prescription history (MAPs), review of the available imaging, evaluation and examination of the patient, coordination of care with the medical staff and if applicable referring physicians, as well as creation of the medical record PQRS Narrative: Smoking Status Never smoker Hx Alcohol Use (MH) No Home Medications: Ambulatory Orders Simvastatin [Zocor] 40 mg PO HS 05/03/15 rOPINIRole HCL [Requip] 0.5 mg PO TID PRN 05/03/15 Ascorbic Acid [Vitamin C] 500 mg PO DAILY 11/24/18 FLUoxetine HCL [PROzac] 20 mg PO HS 11/24/18 Multivitamins, Thera [Multivitamin (formulary)] 1 tab PO DAILY 11/24/18 HYDROcodone/APAP 10-325MG [[place] 10-325] 1 tab PO Q6H PRN 30 Days #120 tab 08/25/23 HYDROcodone/APAP 10-325MG [[place] 10-325] 1 tab PO Q6HR PRN 30 Days #120 tab 08/25/23 Controlled Substance Measures - Controlled Substance Measures Is patient prescribed a controlled substance at discharge?: Yes When asked, does pt state using other controlled substances?: No If prescribed controlled substance>3 days was MAPS reviewed?: Yes
== END ==
LOC: PNWHC3 13:54
PROVIDERS: ATTEND Specialist
DX: M51.36 Other intervertebral disc degeneration, lumbar region (principal); M47.816 Spondylosis without myelopathy or radiculopathy, lumbar region; Z88.1 Allergy status to other antibiotic agents
CPT/HCPCS: 99211

== ENCOUNTER → 2023-10-20 | Outpatient (CLI) | payer MEDICARE | LOC: PNWHC3 14:00 | PROVIDERS: ATTEND Specialist | DX: M54.16 Radiculopathy, lumbar region (principal); Z88.1 Allergy status to other antibiotic agents | CPT/HCPCS: 99211 ==

== ENCOUNTER → 2023-12-29 | Outpatient (CLI) | payer OTHER ==
[2023-12-29 13:14] VITALS: BP 142/79; PULSE 107; RESP 16
--- NOTE | 2023-12-29 14:38 | P.PAINPG ---
PQRS Measure Charge Sheet Comment: HISTORY OF PRESENT ILLNESS: A 78 yr old wheelchair bound female presents today w severe and chronic LBP x 2 yrs secondary to radiculopathy, spondylosis and facet arthropathy without myelopathy for medication refills. Pt states pain level is provoked at 9 /10 in intensity, constant, localized in the mid to lower lumbar spine, predominantly axial, achy in character w occasional shooting pain towards the BL hips and LEs. Pain is provoked by weight bearing activity. Pain is alleviated by medications, PT in 2019, chiropractic treatments in 2020, physician guided stretches daily x 3 yrs, use of a wheelchair for ambulatory assistance, heat, ice, topicals, repositioning and rest. LESIs have been ineffective in the past. Interventional procedures include LESIs ineffective, not a surgical candidate per Dr Cagle Medications include [place] 10/325mg #120, Flexeril, Ibu REVIEW OF ORGAN SYSTEMS: CONSTITUTIONAL: No fevers or chills. No recent weight loss. NEUROLOGICAL: + numbness and tingling along the distal extremities. No seizure disorders or headaches. MUSCULOSKELETAL: + pain PSYCHIATRIC: Denies current depression or suicidal thoughts. Physical Examinations : Constitutional : Cooperative , not in acute distress . Neurologic : Cranial nerve II to XII intact. No focal neurological deficits. Psychiatric : alert & oriented x 3. Matching mood & appropriate affect. Judgment & insight intact. Musculoskeletal : Cervical Spine Motor strength in the deltoid and biceps: Normal right side. Normal Left side Motor strength biceps and the wrist extensors: Normal right side . Normal left side Motor strength in the triceps muscle: Normal right side. Normal left side Deep tendon reflexes: Normal at the biceps. Normal at Brachioradialis. Normal at triceps Vertebral body tenderness to deep palpation over Cervical facet loading test: positive bilaterally Spurling test: positive bilaterally Neck distraction test: positive bilaterally Lacho sign: positive bilaterally Lumbar spine Motor strength lower extremities ,thigh and legs 5/5 Right side , 5/5 Left side Deep tendon reflexes : Normal Knee Jerk. Normal Ankle Jerk Vertebral body tenderness over L3 Thornton Test positive BL L2-L3 Taut bands w twitch response over Lumbar facet Loading Test: positive Right / positive Left Range of motion of the lumbar spine Flexion 30 degrees, extension 10 degrees Straight Leg Raise test: Left/ Right positive at degree Neftali test: positive right / positive left. Severe tenderness over the Sacroiliac joint on the Right / Left sides Vannesalen test: positive bilaterally Seated flexion test: positive bilaterally. Sacral spine : Severe tenderness over the Sacroiliac joint: right side / left side Range of motion: Flexion of the lumbar spine <60 degrees Range of motion: Extension of the lumbar spine <20 degrees Gaenslen's Test positive Neftali test: positive right side / left side Thigh Thrust Test Sacral Thrust Test Imaging: MRI non contrast of the lumbar spine from 07/23/23 reviewed Assessment/ Plan : Lumbar radiculopathy Recommendation of medication management. [place] 10/325mg #120 w 1 RF. Use, side effects, adverse reactions and safe storage discussed. Opiate/ narcotic agreement signed 01/18/23. UDS from 08/23/23 reviewed and consistent. MAPS review ed. All questions answered. I have spent greater than 30 minutes on patie/nt care today. Dr Corea was available by phone for the evaluation of this patient. The time was used to review the medical records including relevant urine s udies and Prescription history (MAPs), review of the available imaging, evaluation and examination of the patient, coordination of care with the medical staff and if applicable referring physicians, as well as creation of the medical record - Pain Location Lower Back Non-Pharmacological Interventions: Heat, Ice Pharmacological Interventions: Scheduled Medication, Topical Medication PQRS Narrative: Smoking Status Never smoker Hx Alcohol Use (MH) No Home Medications: Ambulatory Orders Simvastatin [Zocor] 40 mg PO HS 05/03/15 rOPINIRole HCL [Requip] 0.5 mg PO TID PRN 05/03/15 Ascorbic Acid [Vitamin C] 500 mg PO DAILY 11/24/18 FLUoxetine HCL [PROzac] 20 mg PO HS 11/24/18 Multivitamins, Thera [Multivitamin (formulary)] 1 tab PO DAILY 11/24/18 HYDROcodone/APAP 10-325MG [[place] 10-325] 1 tab PO Q6HR PRN 30 Days #120 tab 12/29/23 HYDROcodone/APAP 10-325MG [[place] 10-325] 1 tab PO QID PRN 30 Days #120 tab 12/29/23 Controlled Substance Measures - Controlled Substance Measures Is patient prescribed a controlled substance at discharge?: Yes When asked, does pt state using other controlled substances?: No If prescribed controlled substance>3 days was MAPS reviewed?: Yes
== END ==
LOC: PNWHC3 12:41
PROVIDERS: ATTEND Specialist
DX: M47.26 Other spondylosis with radiculopathy, lumbar region (principal); Z88.1 Allergy status to other antibiotic agents
CPT/HCPCS: 99211

== ENCOUNTER → 2024-02-17 | Outpatient (CLI) | payer MEDICARE, OTHER ==
[2024-02-17 15:13] VITALS: PULSE 79; RESP 16; TEMP 97.1
[2024-02-17 15:16] VITALS: BP 146/84
--- NOTE | 2024-02-17 15:16 | P.PAINPG ---
PQRS Measure Charge Sheet Comment: HISTORY OF PRESENT ILLNESS: A 78 yr old wheelchair bound female presents today w severe and chronic LBP > 2 yrs secondary to radiculopathy, spondylosis and facet arthropathy without myelopathy for medication refills. Pt states pain level is provoked at 9 /10 in intensity, constant, localized in the mid to lower lumbar spine, predominantly axial, achy in character w occasional shooting pain towards the BL hips and LEs. Pain is provoked by weight bearing activity. Pain is alleviated by medications, PT in 2019, chiropractic treatments in 2019, physician guided stretches daily x 3 yrs, use of a wheelchair for ambulatory assistance, heat, ice, topicals, repositioning and rest. LESIs have been ineffective in the past. Interventional procedures include LESIs ineffective, not a surgical candidate per Dr Cagle Medications include [place] 10/325mg #120, Flexeril, Ibu REVIEW OF ORGAN SYSTEMS: CONSTITUTIONAL: No fevers or chills. No recent weight loss. NEUROLOGICAL: + numbness and tingling along the distal extremities. No seizure disorders or headaches. MUSCULOSKELETAL: + pain PSYCHIATRIC: Denies current depression or suicidal thoughts. Physical Examinations : Constitutional : Cooperative , not in acute distress . Neurologic : Cranial nerve II to XII intact. No focal neurological deficits. Psychiatric : alert & oriented x 3. Matching mood & appropriate affect. Judgment & insight intact. Musculoskeletal : Cervical Spine Motor strength in the deltoid and biceps: Normal right side. Normal Left side Motor strength biceps and the wrist extensors: Normal right side . Normal left side Motor strength in the triceps muscle: Normal right side. Normal left side Deep tendon reflexes: Normal at the biceps. Normal at Brachioradialis. Normal at triceps Vertebral body tenderness to deep palpation over Cervical facet loading test: positive bilaterally Spurling test: positive bilaterally Neck distraction test: positive bilaterally Lacho sign: positive bilaterally Lumbar spine Motor strength lower extremities ,thigh and legs 5/5 Right side , 5/5 Left side Deep tendon reflexes : Normal Knee Jerk. Normal Ankle Jerk Vertebral body tenderness over L3 Thornton Test positive BL L2-L3 Taut bands w twitch response over Lumbar facet Loading Test: positive Right / positive Left Range of motion of the lumbar spine Flexion 30 degrees, extension 10 degrees Straight Leg Raise test: Left/ Right positive at degree Neftali test: positive right / positive left. Severe tenderness over the Sacroiliac joint on the Right / Left sides Vannesalen test: positive bilaterally Seated flexion test: positive bilaterally. Sacral spine : Severe tenderness over the Sacroiliac joint: right side / left side Range of motion: Flexion of the lumbar spine <60 degrees Range of motion: Extension of the lumbar spine <20 degrees Gaenslen's Test positive Neftali test: positive right side / left side Thigh Thrust Test Sacral Thrust Test Imaging: MRI non contrast of the lumbar spine from 07/23/23 reviewed Assessment/ Plan : Lumbar radiculopathy Recommendation of medication management. [place] 10/325mg #120 w 1 RF. Use, side effects, adverse reactions and safe storage discussed. Opiate/ narcotic agreement signed 01/18/23. UDS from 08/23/23 reviewed and consistent. MAPS review ed. All questions answered. I have spent greater than 30 minutes on patie/nt care today. Dr Corea was available by phone for the evaluation of this patient. The time was used to review the medical records including relevant urine s udies and Prescription history (MAPs), review of the available imaging, evaluation and examination of the patient, coordination of care with the medical staff and if applicable referring physicians, as well as creation of the medical record PQRS Narrative: Smoking Status Never smoker Hx Alcohol Use (MH) No Home Medications: Ambulatory Orders Simvastatin [Zocor] 40 mg PO HS 05/03/15 rOPINIRole HCL [Requip] 0.5 mg PO TID PRN 05/03/15 Ascorbic Acid [Vitamin C] 500 mg PO DAILY 11/24/18 FLUoxetine HCL [PROzac] 20 mg PO HS 11/24/18 Multivitamins, Thera [Multivitamin (formulary)] 1 tab PO DAILY 11/24/18 HYDROcodone/APAP 10-325MG [[place] 10-325] 1 tab PO Q6HR PRN 30 Days #120 tab 02/17/24 HYDROcodone/APAP 10-325MG [[place] 10-325] 1 tab PO QID PRN 30 Days #120 tab 02/17/24 Controlled Substance Measures - Controlled Substance Measures Is patient prescribed a controlled substance at discharge?: Yes When asked, does pt state using other controlled substances?: No If prescribed controlled substance>3 days was MAPS reviewed?: Yes
== END ==
LOC: PNWHC3 13:16
PROVIDERS: ATTEND Specialist
DX: M50.30 Other cervical disc degeneration, unspecified cervical region (principal); M51.16 Intervertebral disc disorders with radiculopathy, lumbar region; M47.26 Other spondylosis with radiculopathy, lumbar region; Z88.1 Allergy status to other antibiotic agents
CPT/HCPCS: 99211

== ENCOUNTER → 2024-05-25 | Outpatient (CLI) | payer MEDICARE ==
[2024-05-25 14:39] VITALS: BP 138/82; PULSE 101; RESP 15; TEMP 98.2
--- NOTE | 2024-05-25 15:18 | P.PAINPG ---
Objective - Vital Signs Vital signs: Vital Signs Temp 98.2 F 05/25/24 14:35 Pulse 101 H 05/25/24 14:35 Resp 15 05/25/24 14:35 BP 138/82 05/25/24 14:35 Pulse Ox 97 05/25/24 14:35 FiO2 Intake & Output 05/24/24 05/25/24 05/25/24 18:59 06:59 18:59 Weight 81.647 kg PQRS Measure Charge Sheet Mode of Arrival: Ambulatory Comment: HISTORY OF PRESENT ILLNESS: A 78 yr old wheelchair bound female presents today w severe and chronic LBP > 2 yrs secondary to radiculopathy, spondylosis and facet arthropathy without myelopathy for medication refills. Pt states pain level is provoked at 9 /10 in intensity, constant, localized in the mid to lower lumbar spine, predominantly axial, achy in character w occasional shooting pain towards the BL hips and LEs. Pain is provoked by weight bearing activity. Pain is alleviated by medications, PT in 2019, chiropractic treatments in 2019, physician guided stretches daily x 3 yrs, use of a wheelchair for ambulatory assistance, heat, ice, topicals, repositioning and rest. LESIs have been ineffective in the past. Interventional procedures include LESIs ineffective, not a surgical candidate per Dr Cagle Medications include [place] 10/325mg #120, Flexeril, Ibu REVIEW OF ORGAN SYSTEMS: CONSTITUTIONAL: No fevers or chills. No recent weight loss. NEUROLOGICAL: + numbness and tingling along the distal extremities. No seizure disorders or headaches. MUSCULOSKELETAL: + pain PSYCHIATRIC: Denies current depression or suicidal thoughts. Physical Examinations : Constitutional : Cooperative , not in acute distress . Neurologic : Cranial nerve II to XII intact. No focal neurological deficits. Psychiatric : alert & oriented x 3. Matching mood & appropriate affect. Judgment & insight intact. Musculoskeletal : Cervical Spine Motor strength in the deltoid and biceps: Normal right side. Normal Left side Motor strength biceps and the wrist extensors: Normal right side . Normal left side Motor strength in the triceps muscle: Normal right side. Normal left side Deep tendon reflexes: Normal at the biceps. Normal at Brachioradialis. Normal at triceps Vertebral body tenderness to deep palpation over Cervical facet loading test: positive bilaterally Spurling test: positive bilaterally Neck distraction test: positive bilaterally Lacho sign: positive bilaterally Lumbar spine Motor strength lower extremities ,thigh and legs 5/5 Right side , 5/5 Left side Deep tendon reflexes : Normal Knee Jerk. Normal Ankle Jerk Vertebral body tenderness over L3 Thornton Test positive BL L2-L3 Taut bands w twitch response over Lumbar facet Loading Test: positive Right / positive Left Range of motion of the lumbar spine Flexion 30 degrees, extension 10 degrees Straight Leg Raise test: Left/ Right positive at degree Neftali test: positive right / positive left. Severe tenderness over the Sacroiliac joint on the Right / Left sides Gaenslen test: positive bilaterally Seated flexion test: positive bilaterally. Sacral spine : Severe tenderness over the Sacroiliac joint: right side / left side Range of motion: Flexion of the lumbar spine <60 degrees Range of motion: Extension of the lumbar spine <20 degrees Gaenslen's Test positive Neftali test: positive right side / left side Thigh Thrust Test Sacral Thrust Test Imaging: MRI non contrast of the lumbar spine from 07/23/23 reviewed Assessment/ Plan : Lumbar radiculopathy Recommendation of medication management. [place] 10/325mg #120 w 1 RF. Use, side effects, adverse reactions and safe storage discussed. Opiate/ narcotic agreement signed 05/25/24. UDS from 08/23/23 reviewed and consistent. MAPS reviewed. All questions answered. I have spent greater than 30 minutes on patie/nt care today. Dr Corea was available by phone for the evaluation of this patient. The time was used to review the medical records including relevant urine s udies and Prescription history (MAPs), review of the available imaging, evaluation and examination of the patient, coordination of care with the medical staff and if applicable referring physicians, as well as creation of the medical record - Pain Location Generalized Pharmacological Interventions: Medication PQRS Narrative: Smoking Status Never smoker Blood Pressure 138/82 Pain Intensity [Generalized] 10 Scale Used Numeric (1 - 10) Hx Alcohol Use (MH) No Home Medications: Ambulatory Orders Simvastatin [Zocor] 40 mg PO HS 05/03/15 rOPINIRole HCL [Requip] 0.5 mg PO TID PRN 05/03/15 Ascorbic Acid [Vitamin C] 500 mg PO DAILY 11/24/18 FLUoxetine HCL [PROzac] 20 mg PO HS 11/24/18 Multivitamins, Thera [Multivitamin (formulary)] 1 tab PO DAILY 11/24/18 HYDROcodone/APAP 10-325MG [[place] 10-325] 1 tab PO Q6HR PRN 30 Days #120 tab 02/17/24 HYDROcodone/APAP 10-325MG [[place] 10-325] 1 tab PO QID PRN 30 Days #120 tab 02/17/24 Controlled Substance Measures - Controlled Substance Measures Is patient prescribed a controlled substance at discharge?: Yes When asked, does pt state using other controlled substances?: No If prescribed controlled substance>3 days was MAPS reviewed?: Yes If Rx opioid, was Start Talking consent form obtained?: Yes Was information provided regarding opioid addiction?: Yes
== END ==
LOC: PNWHC3 14:05
PROVIDERS: ATTEND Specialist
DX: M47.26 Other spondylosis with radiculopathy, lumbar region (principal); Z88.1 Allergy status to other antibiotic agents
CPT/HCPCS: 99212

== ENCOUNTER → 2024-08-03 | Outpatient (CLI) | payer MEDICARE ==
[2024-08-03 14:30] VITALS: BP 128/83; PULSE 109; RESP 19
--- NOTE | 2024-08-07 14:30 | P.PAINPG ---
Objective - Vital Signs Vital signs: Vital Signs Temp Pulse 109 H 08/03/24 14:12 Resp 19 08/03/24 14:12 BP 128/83 08/03/24 14:12 Pulse Ox 93 L 08/03/24 14:12 FiO2 Intake & Output 08/02/24 08/03/24 08/03/24 18:59 06:59 18:59 Weight 79.379 kg PQRS Measure Charge Sheet Mode of Arrival: Wheelchair Comment: HISTORY OF PRESENT ILLNESS: A 79 yr old wheelchair bound female presents today w severe and chronic LBP > 2 yrs secondary to radiculopathy, spondylosis and facet arthropathy without myelopathy for medication refills. Pt states pain level is provoked at 8 /10 in intensity, constant, localized in the mid to lower lumbar spine, predominantly axial, achy in character w occasional shooting pain towards the BL hips and LEs. Pain is provoked by weight bearing activity. Pain is alleviated by medica tions, PT in 2019, chiropractic treatments in 2019, physician guided stretches daily x 3 yrs, use of a wheelchair for ambulatory assistance, heat, ice, topicals, repositioning and rest. Interventional procedures include LESIs ineffective, not a surgical candidate per Dr Cagle Medications include [place] 10/325mg #120, Flexeril, Ibu REVIEW OF ORGAN SYSTEMS: CONSTITUTIONAL: No fevers or chills. No recent weight loss. NEUROLOGICAL: + numbness and tingling along the distal extremities. No seizure disorders or headaches. MUSCULOSKELETAL: + pain PSYCHIATRIC: Denies current depression or suicidal thoughts. Physical Examinations : Constitutional : Cooperative , not in acute distress . Neurologic : Cranial nerve II to XII intact. No focal neurological deficits. Psychiatric : alert & oriented x 3. Matching mood & appropriate affect. Judgment & insight intact. Musculoskeletal : Cervical Spine Motor strength in the deltoid and biceps: Normal right side. Normal Left side Motor strength biceps and the wrist extensors: Normal right side . Normal left side Motor strength in the triceps muscle: Normal right side. Normal left side Deep tendon reflexes: Normal at the biceps. Normal at Brachioradialis. Normal at triceps Vertebral body tenderness to deep palpation over Cervical facet loading test: positive bilaterally Spurling test: positive bilaterally Neck distraction test: positive bilaterally Lacho sign: positive bilaterally Lumbar spine Motor strength lower extremities ,thigh and legs 5/5 Right side , 5/5 Left side Deep tendon reflexes : Normal Knee Jerk. Normal Ankle Jerk Vertebral body tenderness over L3 Thornton Test positive BL L2-L3 Taut bands w twitch response over Lumbar facet Loading Test: positive Right / positive Left Range of motion of the lumbar spine Flexion 30 degrees, extension 10 degrees Straight Leg Raise test: Left/ Right positive at degree Neftali test: positive right / positive left. Severe tenderness over the Sacroiliac joint on the Right / Left sides Gaenslen test: positive bilaterally Seated flexion test: positive bilaterally. Sacral spine : Severe tenderness over the Sacroiliac joint: right side / left side Range of motion: Flexion of the lumbar spine <60 degrees Range of motion: Extension of the lumbar spine <20 degrees Gaenslen's Test positive Neftali test: positive right side / left side Thigh Thrust Test Sacral Thrust Test Imaging: MRI non contrast of the lumbar spine from 07/23/23 reviewed Assessment/ Plan : Lumbar radiculopathy Recommendation of medication management. [place] 10/325mg #120 w 1 RF. Use, side effects, adverse reactions and safe storage discussed. Opiate/ narcotic agreement signed 05/25/24. UDS collected 08/03/24. MAPS reviewed. All questions answered. I have spent greater than 30 minutes on patie/nt care today. Dr Corea was available by phone for the evaluation of this patient. The time was used to review the medical records including relevant urine s udies and Prescription history (MAPs), review of the available imaging, evaluation and examination of the patient, coordination of care with the medical staff and if applicable referring physicians, as well as creation of the medical record - Pain Location Lower Back Pharmacological Interventions: Medication PQRS Narrative: Smoking Status Never smoker Blood Pressure 128/83 Pain Intensity [Lower Back] 8 Scale Used Numeric (1 - 10) Hx Alcohol Use (MH) No Home Medications: Ambulatory Orders Simvastatin [Zocor] 40 mg PO HS 05/03/15 rOPINIRole HCL [Requip] 0.5 mg PO TID PRN 05/03/15 Ascorbic Acid [Vitamin C] 500 mg PO DAILY 11/24/18 FLUoxetine HCL [PROzac] 20 mg PO HS 11/24/18 Multivitamins, Thera [Multivitamin (formulary)] 1 tab PO DAILY 11/24/18 HYDROcodone/APAP 10-325MG [[place] 10-325] 1 tab PO Q6HR PRN 30 Days #120 tab 08/03/24 HYDROcodone/APAP 10-325MG [[place] 10-325] 1 tab PO QID PRN 30 Days #120 tab 08/03/24 Controlled Substance Measures - Controlled Substance Measures Is patient prescribed a controlled substance at discharge?: Yes When asked, does pt state using other controlled substances?: No If prescribed controlled substance>3 days was MAPS reviewed?: Yes
== END ==
LOC: PNWHC3 14:05
PROVIDERS: ATTEND Specialist
DX: M47.26 Other spondylosis with radiculopathy, lumbar region (principal); Z88.1 Allergy status to other antibiotic agents; Z88.8 Allergy status to other drugs, medicaments and biological substances
CPT/HCPCS: 80307; 99212